=== PATIENT | female | born 1970 | race Caucasian/White ===

== ENCOUNTER 2019-01-14 13:25 | Emergency (ER) | payer BC ==
[2019-01-14 13:37] VITALS: BP 123/74
[2019-01-14] MEDS ORDERED: Fluorescein Sodium TOPICAL* 1 MG TEST STRIP OPHTHALMIC ONE (14:36)
--- NOTE | 2019-01-14 14:45 | UC ---
Eye Complaint HPI - HPI Summary HPI Summary: 49 yo female with the acute onset of FB sensation right eye when she laid down to go to sleep last night blinking caused extreme pain today feels achy myalgias HANSON n severe, no v - History of Current Complaint Chief Complaint: UCEye Stated Complaint: FB IN EYE Time Seen by Provider: 01/14/19 14:30 Hx Obtained From: Patient Hx Last Menstrual Period: 12/31/18 Onset/Duration: Gradual Onset Timing: Constant Severity Currently: Mild Pain Intensity: 4 - severe with blink Pain Scale Used: 0-10 Numeric Location of Injury: Eye Lid (upper) Character: Sharp, Foreign Body Sensation Aggravating Factor(s): Blinking Alleviating Factor(s): Other - openning eye Associated Signs And Symptoms: Negative: Photophobia, Drainage (Clear), Drainage (Purulent), Vision Impairment Bilateral, Vision Impairment Right, Vision Impairment Left, Fever, Swelling - Risk Factors Penetrating Injury Risk Factor: Negative Globe Rupture Risk Factors: Negative Acute Glaucoma Risk Factors: Negative Optic Artery Occlusion Risk Factors: Negative - Allergies/Home Medications Allergies/Adverse Reactions: Allergies Allergy/AdvReac Type Severity Reaction Status Date / Time No Known Allergies Allergy Verified 01/14/19 13:37 PMH/Surg Hx/FS Hx/Imm Hx Previously Healthy: Yes - Surgical History Surgical History: Yes Surgery Procedure, Year, and Place: spinal x2, c3,4,5 fused. l5/s1 has artificial disc - Family History Known Family History: Positive: Hypertension, Non-Contributory - Social History Alcohol Use: Occasionally Substance Use Type: None Smoking Status (MU): Never Smoked Tobacco Review of Systems All Other Systems Reviewed And Are Negative: Yes Constitutional: Positive: Negative Skin: Positive: Negative Eyes: Positive: Other - FB sensaion R upper eyelid ENT: Positive: Negative Respiratory: Positive: Negative Gastrointestinal: Positive: Vomiting, Nausea Genitourinary: Positive: Negative Motor: Positive: Negative Neurovascular: Positive: Negative Musculoskeletal: Positive: Myalgia Neurological: Positive: Headache Psychological: Positive: Negative Physical Exam Triage Information Reviewed: Yes Appearance: Well-Appearing, No Pain Distress, Well-Nourished Vital Signs: Initial Vital Signs Temp 99.4 F 01/14/19 13:30 Pulse 97 01/14/19 13:30 Resp 18 01/14/19 13:30 BP 123/74 01/14/19 13:30 Pulse Ox 99 01/14/19 13:30 Vital Signs Reviewed: Yes Eyes: Positive: Conjunctiva Clear, Other: - eomi/perrl, eye lid everted ...no fb noted....(-) flourescein stain ENT: Positive: Hearing grossly normal, Uvula midline. Negative: Nasal congestion, Nasal drainage, Trismus, Muffled voice, Hoarse voice Neck: Positive: Supple Respiratory: Positive: Lungs clear, Normal breath sounds, No respiratory distress, No accessory muscle use Cardiovascular: Positive: RRR, No Murmur Musculoskeletal: Positive: ROM Intact, No Edema Neurological: Positive: Alert Psychological: Positive: Normal Response To Family, Decreased Age Appropriate Behavior Eye Complaint Course/Dx - Differential Dx/Diagnosis Provider Diagnosis: Retained foreign body in right upper eyelid, Viral illness Discharge ED - Sign-Out/Discharge Documenting (check all that apply): Patient Departure All imaging exams completed and their final reports reviewed: No Studies - Discharge Plan Condition: Stable Disposition: HOME Prescriptions: Ondansetron TAB* [Zofran Tab*] 4 mg PO Q6H PRN #10 tab PRN Reason: Nausea Patient Education Materials: Acute Nausea and Vomiting (ED), Eye Foreign Body ( ED) Referrals: Janee Muniz MD [Medical Doctor] - (appt at 4:30 today) Additional Instructions: I could not see a foreign body I suggest you get checked at Dr. Mustafa's office today at 4:30 You have an appt with Dr. Muniz I suspect you are on the cusp of a viral illness causing you aches and nausea see your MD in 1-2 days if not better - Billing Disposition and Condition Condition: STABLE Disposition: Home
[2019-01-14] MEDS ORDERED: Ondansetron ODT TAB* 4 MG PO ONE (14:56)
== END 2019-01-14 15:05 | disposition home or self-care (01) ==
LOC: UCEAST 13:25
DX: H02.811 Retained foreign body in right upper eyelid (principal); M79.10 Myalgia, unspecified site; R51 Headache; R11.0 Nausea; Z18.9 Retained foreign body fragments, unspecified material
CPT/HCPCS: 99212; A9270-GY; G0463